=== PATIENT | female | born 1960 | race Caucasian/White ===

== ENCOUNTER 2016-12-15 03:35 | Emergency (ER) | payer BC ==
[~2016-12-15] VITALS: Ht 170.2 cm; Wt 59.0 kg
--- NOTE | ~2016-12-15 | EKG ---
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
[2016-12-15] MEDS ORDERED: LEVOTHYROXIN0.088 MG PO (03:41)
[2016-12-15 04:10] LABS: HEMATOCRIT 37.9 % (37.0-47.0); HEMOGLOBIN 12.9 gm/dL (12.0-15.0); MCH 30.5 pg (26.0-34.0); MCV 89.7 fL (80.0-100.0); PLATELET COUNT 237 thou/uL (150-400); RBC 4.23 mil/uL (4.20-5.00); RDW 14.1 % (10.5-14.5); WBC 4.1 thou/uL (4.0-11.0)
[2016-12-15 04:15] LABS: ANION GAP 9 mmol/L (7-16); BUN 10 mg/dL (7-18); CALCIUM 8.8 mg/dL (8.5-10.1); CHLORIDE 105 mmol/L (98-107); CO2 27 mmol/L (21-32); CREATININE 0.7 mg/dL (0.6-1.0); GLUCOSE 89 mg/dL (74-106); POTASSIUM 3.7 mmol/L (3.5-5.1); SODIUM 141 mmol/L (136-145)
[2016-12-15 04:16] LABS: MANUAL DIFF YES
[2016-12-15 04:23] LABS: TROPONIN-I < 0.04 ng/mL (<0.04-0.07)
[2016-12-15] MEDS ORDERED: PROVENTIL HFA6.7 G1 INH (04:32)
[2016-12-15] MEDS ORDERED: TUSSIONEX PENN473 ML PO (04:32)
[2016-12-15 04:36] LABS: ABSOLUTE NEUTROPHILS 1.6 thou/uL (1.4-8.2); TOTAL CELL COUNT 100
[2016-12-15 05:06] VITALS: BP 121/73
== END 2016-12-15 05:13 | disposition home or self-care (01) ==
LOC: ER 03:35
PROVIDERS: Emergency Medicine
DX: J06.9 Acute upper respiratory infection, unspecified (principal); E03.9 Hypothyroidism, unspecified